=== PATIENT | male | born 1995 | race Caucasian/White ===

== ENCOUNTER 2020-03-10 03:54 | Emergency (ER) | payer BC ==
[~2020-03-10] VITALS: Ht 175.3 cm; Wt 56.0 kg
[2020-03-10] MEDS ORDERED: TRANEXAMIC ACID 1,000 MG/10 ML IV ONE (04:45)
[2020-03-10] MEDS ORDERED: SODIUM CHLORIDE 0.9% 1,000 ML IV ONE (04:45)
[2020-03-10] MEDS ORDERED: TRANEXAMIC ACID 1,000 MG/10 ML TP ONE (04:54)
[2020-03-10 05:28] LABS: EOSINOPHILS % 3.2 % (0.0-5.0); HEMATOCRIT. 36.5 % (42.0-52.0); HEMOGLOBIN. 12.6 g/dL (14.0-18.0); LYMPHOCYTES % 28.9 % (20.0-50.0); MEAN CORPUSCULAR HEMOGLOBIN 30.1 pg (28.0-32.0); MEAN CORPUSCULAR VOLUME 87.6 fL (80.0-94.0); MEAN PLATELET VOLUME 7.8 fl (7.4-10.4); MONOCYTES % 9.4 % (2.0-8.0); NEUTROPHILS % 57.5 % (40.0-76.0); PLATELET 210 x1000/uL (130-400); RED BLOOD CELL COUNT 4.17 mill/uL (4.7-6.1); RED CELL DISTRIBUTION WIDTH 12.5 % (11.6-14.6)
[2020-03-10] MEDS ORDERED: MORPHINE SULFATE 4 MG/ML CPJ (NOT FOR IM USE) IV ONE (09:45)
[2020-03-10 10:26] VITALS: BP 112/69
== END 2020-03-10 10:28 | disposition home or self-care (01) ==
LOC: ER 03:54
DX: K13.79 Other lesions of oral mucosa (principal)
CPT/HCPCS: 36415; 85025; 86850; 86900; 86901; 96361; 96374; 99285; J2270; J7030